=== PATIENT | male | born 1950 | race Caucasian/White ===

== ENCOUNTER 2017-10-07 11:04 | Inpatient (IN) | payer OTHER ==
[~2017-10-07] VITALS: Ht 180.3 cm; Wt 114.7 kg
[2017-10-07] MEDS ORDERED: ALBU90OI INH (11:20)
[2017-10-07] MEDS ORDERED: AMLO10 PO (11:20)
[2017-10-07] MEDS ORDERED: ATOR20 PO (11:21)
[2017-10-07] MEDS ORDERED: ASPI81CH PO (11:21)
[2017-10-07] MEDS ORDERED: VERA240ER PO (11:21)
[2017-10-07] MEDS ORDERED: FURO20 PO (11:22)
[2017-10-07] MEDS ORDERED: GLIP5 PO (11:22)
[2017-10-07] MEDS ORDERED: METF500 PO (11:23)
[2017-10-07] MEDS ORDERED: LISI20 PO (11:23)
[2017-10-07 12:15] LABS: Hematocrit 36.1 % (37.0-53.0); Hemoglobin 12.5 g/dL (13.5-17.5); Mean Corpuscular HGB 30.5 pg (26.0-34.0); Mean Corpuscular HGB Conc 34.6 g/dL (31.5-36.5); Mean Corpuscular Volume 88 fL (80-100); Mean Platelet Volume 10.6 fL (9.1-12.4); Platelet Count 252 K/mm3 (150-400); RDW Coefficient Variation 14.3 % (11.7-14.2); RDW Standard Deviation 46.5 fL (35.1-46.3); White Blood Cell Count 8.45 K/mm3 (4.00-11.30)
[2017-10-07 12:22] LABS: Albumin, Blood 3.1 g/dL (3.4-5.0); Albumin/Globulin Ratio 0.7 (0.8-1.8); Bilirubin, Total 0.3 mg/dL (0.1-1.0); Bun/Creatinine Ratio 19.1 (12.0-20.0); Calcium, Blood 7.2 mg/dL (8.5-10.1); Creatinine, Blood 5.72 mg/dL (0.60-1.20); Globulin, Blood 4.7 g/dL (2.2-4.0); Potassium, Blood 4.1 mmol/L (3.5-5.5); Total Protein, Blood 7.8 g/dL (6.4-8.2)
[2017-10-07 12:29] LABS: International Normalized Ratio 1.03; Prothrombin Time Results 10.7 Sec (9.7-11.5)
[2017-10-07 12:33] LABS: Bilirubin, Urine Neg (Neg); Blood, Urine 2+ (Neg); Glucose Qualitative, Urine Neg (Neg); Ketones, Urine Neg (Neg); Leukocyte Esterase, Urine Neg (Neg); Nitrite, Urine Neg (Neg); Protein, Urine 1+ (Neg); Source, Urine Clean Catch; Urobilinogen, Urine NORM (Normal)
[2017-10-07 12:50] LABS: Appearance, Urine Clear (Clear); Color, Urine Yellow (P-Yellow)
[2017-10-07 12:58] LABS: BASOPHILS PERCENT MAN 0 % (0-2); EOSINOPHILS PERCENT MAN 0 % (0-6); LYMPHOCYTES ABSOLUTE MAN 1.26 K/mm3 (0.84-5.20); LYMPHOCYTES PERCENT MAN 15 % (21-46); MONOCYTES PERCENT MAN 6 % (4-13); NEUTROPHILS ABSOLUTE MAN 6.67 K/mm3 (1.96-9.15); SEG NEUTROPHILS PERCENT MAN 79 % (41-73); TOTAL CELLS COUNTED 100
[2017-10-07 13:10] LABS: Bacteria Mod /hpf; Red Blood Cells, Urine 0-2 /hpf (0-2); Squamous Epithelial Cells Few /hpf (Few)
[2017-10-08 04:38] LABS: BASOPHILS ABSOLUTE AUTO 0.01 K/mm3 (0.00-0.23); BASOPHILS PERCENT AUTO 0 % (0-2); EOSINOPHILS ABSOLUTE AUTO 0.03 K/mm3 (0.00-0.68); EOSINOPHILS PERCENT AUTO 1 % (0-6); Hematocrit 32.4 % (37.0-53.0); IMMATURE GRAN ABSOLUTE AUTO 0.01 K/mm3 (0.00-0.10); IMMATURE GRAN PERCENT AUTO 0 % (0-1); LYMPHOCYTES ABSOLUTE AUTO 1.13 K/mm3 (0.84-5.20); LYMPHOCYTES PERCENT AUTO 18 % (21-46); MONOCYTES ABSOLUTE AUTO 0.42 K/mm3 (0.16-1.47); MONOCYTES PERCENT AUTO 7 % (4-13); Mean Corpuscular HGB 30.1 pg (26.0-34.0); Mean Corpuscular Volume 89 fL (80-100); Mean Platelet Volume 10.1 fL (9.1-12.4); NEUTROPHILS ABSOLUTE AUTO 4.78 K/mm3 (1.96-9.15); NEUTROPHILS PERCENT AUTO 75 % (41-73); Platelet Count 202 K/mm3 (150-400); RDW Coefficient Variation 14.5 % (11.7-14.2); RDW Standard Deviation 47.3 fL (35.1-46.3); Red Blood Cell Count 3.65 M/mm3 (4.30-5.90); White Blood Cell Count 6.38 K/mm3 (4.00-11.30)
[2017-10-08 04:55] LABS: Bun/Creatinine Ratio 27.8 (12.0-20.0); Calcium, Blood 6.9 mg/dL (8.5-10.1); Creatinine, Blood 3.02 mg/dL (0.60-1.20); Potassium, Blood 3.9 mmol/L (3.5-5.5)
[2017-10-09 05:16] LABS: BASOPHILS ABSOLUTE AUTO 0.01 K/mm3 (0.00-0.23); BASOPHILS PERCENT AUTO 0 % (0-2); EOSINOPHILS ABSOLUTE AUTO 0.04 K/mm3 (0.00-0.68); EOSINOPHILS PERCENT AUTO 1 % (0-6); Hematocrit 32.7 % (37.0-53.0); Hemoglobin 10.7 g/dL (13.5-17.5); IMMATURE GRAN ABSOLUTE AUTO 0.01 K/mm3 (0.00-0.10); IMMATURE GRAN PERCENT AUTO 0 % (0-1); LYMPHOCYTES ABSOLUTE AUTO 1.06 K/mm3 (0.84-5.20); LYMPHOCYTES PERCENT AUTO 18 % (21-46); MONOCYTES ABSOLUTE AUTO 0.64 K/mm3 (0.16-1.47); MONOCYTES PERCENT AUTO 11 % (4-13); Mean Corpuscular HGB 30.1 pg (26.0-34.0); Mean Corpuscular HGB Conc 32.7 g/dL (31.5-36.5); Mean Platelet Volume 10.8 fL (9.1-12.4); NEUTROPHILS ABSOLUTE AUTO 4.29 K/mm3 (1.96-9.15); NEUTROPHILS PERCENT AUTO 71 % (41-73); Platelet Count 228 K/mm3 (150-400); RDW Coefficient Variation 14.7 % (11.7-14.2); RDW Standard Deviation 50.4 fL (35.1-46.3); Red Blood Cell Count 3.55 M/mm3 (4.30-5.90); White Blood Cell Count 6.05 K/mm3 (4.00-11.30)
[2017-10-09 05:23] LABS: Mean Corpuscular Volume 92 fL (80-100)
[2017-10-09 05:48] LABS: Bun/Creatinine Ratio 29.7 (12.0-20.0); Calcium, Blood 7.5 mg/dL (8.5-10.1); Creatinine, Blood 1.65 mg/dL (0.60-1.20); Potassium, Blood 4.3 mmol/L (3.5-5.5)
== END 2017-10-09 10:07 | disposition home or self-care (01) | DRG 683 ==
LOC: ER 11:04 → MEDS 12:08 → ENPENDDIS 10-09 08:50 → MEDS 10-09 10:07
PROVIDERS: Internal Medicine
DX: N17.9 Acute kidney failure, unspecified (principal); I13.0 Hypertensive heart and chronic kidney disease with heart failure and stage 1 through stage 4 chronic kidney disease, or unspecified chronic kidney disease; E11.22 Type 2 diabetes mellitus with diabetic chronic kidney disease; E11.40 Type 2 diabetes mellitus with diabetic neuropathy, unspecified; N18.2 Chronic kidney disease, stage 2 (mild); D63.1 Anemia in chronic kidney disease; I48.0 Paroxysmal atrial fibrillation; J44.9 Chronic obstructive pulmonary disease, unspecified; I50.9 Heart failure, unspecified; E78.5 Hyperlipidemia, unspecified; F17.210 Nicotine dependence, cigarettes, uncomplicated; E66.9 Obesity, unspecified; Z68.34 Body mass index [BMI] 34.0-34.9, adult; Z79.84 Long term (current) use of oral hypoglycemic drugs; Z79.82 Long term (current) use of aspirin; Z79.899 Other long term (current) drug therapy
CPT/HCPCS: 36415; 71010; 76770; 80048; 80053; 81001; 82947; 83605; 84100; 85007; 85025; 85027; 85610; 87040; 87086; 93005; 93010; 94640; 94760; 96361; 96374; 99285; C9113; J7030; J7120

== ENCOUNTER 2020-02-28 22:16 | Inpatient (IN) | payer OTHER, MEDICARE ==
[~2020-02-28] VITALS: Ht 180.3 cm; Wt 83.6 kg
[~2020-02-28 22:16] MED LIST: ALBU90OI INH; AMLO10 PO; ASPI81CH PO; ATOR20 PO; FURO20 PO; GLIP5 PO; LISI20 PO; METF500 PO; VERA240ER PO
[2020-02-28 22:39] LABS: BASOPHILS ABSOLUTE AUTO 0.04 K/mm3 (0.00-0.23); BASOPHILS PERCENT AUTO 0 % (0-2); EOSINOPHILS ABSOLUTE AUTO 0.03 K/mm3 (0.00-0.68); EOSINOPHILS PERCENT AUTO 0 % (0-6); Hematocrit 26.3 % (37.0-53.0); Hemoglobin 8.1 g/dL (13.5-17.5); IMMATURE GRAN ABSOLUTE AUTO 0.03 K/mm3 (0.00-0.10); IMMATURE GRAN PERCENT AUTO 0 % (0-1); LYMPHOCYTES ABSOLUTE AUTO 0.57 K/mm3 (0.84-5.20); LYMPHOCYTES PERCENT AUTO 5 % (21-46); MONOCYTES ABSOLUTE AUTO 0.72 K/mm3 (0.16-1.47); MONOCYTES PERCENT AUTO 7 % (4-13); Mean Corpuscular HGB 28.4 pg (26.0-34.0); Mean Corpuscular HGB Conc 30.8 g/dL (31.5-36.5); Mean Corpuscular Volume 92 fL (80-100); Mean Platelet Volume 9.4 fL (9.1-12.4); NEUTROPHILS ABSOLUTE AUTO 9.72 K/mm3 (1.96-9.15); NEUTROPHILS PERCENT AUTO 87 % (41-73); Platelet Count 466 K/mm3 (150-400); RDW Coefficient Variation 19.4 % (11.7-14.2); RDW Standard Deviation 65.1 fL (35.1-46.3); Red Blood Cell Count 2.85 M/mm3 (4.30-5.90); White Blood Cell Count 11.11 K/mm3 (4.00-11.30)
[2020-02-28 23:00] LABS: Albumin, Blood 2.4 g/dL (3.4-5.0); Albumin/Globulin Ratio 0.4 (0.8-1.8); Bilirubin, Total 0.4 mg/dL (0.1-1.0); Bun/Creatinine Ratio 11.5 (12.0-20.0); Calcium, Blood 9.2 mg/dL (8.5-10.1); Creatinine, Blood 10.6 mg/dL (0.60-1.20); Globulin, Blood 5.8 g/dL (2.2-4.0); Potassium, Blood 6.5 mmol/L (3.5-5.5); Total Protein, Blood 8.2 g/dL (6.4-8.2)
[2020-02-28] MEDS ORDERED: CLOP75 PO (23:40)
[2020-02-28] MEDS ORDERED: METF500 PO (23:40)
[2020-02-28] MEDS ORDERED: CENTRUM SILVER1 EAC2 PO (23:41)
[2020-02-28] MEDS ORDERED: Lopressor 25 mg25 MG PO (23:42)
[2020-02-28] MEDS ORDERED: CALCIUM CIT 311 EACH PO (23:43)
[2020-02-28] MEDS ORDERED: LISI20 PO (23:44)
[2020-02-29 00:26] LABS: Base Excess Venous -13.1 mmol/L; Bicarbonate Venous 14.9 mmol/L (24.0-30.0); PCO2 Venous 30.5 mmHg (38-42); PO2 Venous 69.7 mmHg (38-42)
[2020-02-29 00:27] LABS: pH Blood Venous 7.27 (7.34-7.37)
--- NOTE | 2020-02-29 02:15 | NUR ---
PT TO ICU 13 VIA CHEMO WITH ED RN, PT AMBULATES WITH ASSITANCE TO HOSPITAL BED. PT ALERT AND ORIENTED TO SELF, EVENT, LOCATION, AND FOLLOWING DIRECTIONS. O2 SATURATIONS>95% ON RA, MONITOR SHOWS SINUS RHYTHM, HR 70'S, BP STABLE WITH SBP 150'S. MODERATE ABDOMINAL DISTENSION PRESENT, BTx4, PT DENIES PAIN/TENDERNESS AT THIS TIME, REPORTS MEDICATION PROVIDED IN ED "DID THE TRICK" FOR HIS PAIN. QUEEN PRESENT DRAINING LIGHT YELLOW URINE, SAMPLE SENT TO LAB. LR INFUSING @ 100ml/hr PLACED ON SB TO CONFIRM ORDERS WITH ADMITTING PROVIDER.
[2020-02-29 02:21] LABS: Source, Urine Catheter
[2020-02-29 02:37] LABS: Bun/Creatinine Ratio 11.4 (12.0-20.0); Calcium, Blood 8.9 mg/dL (8.5-10.1); Creatinine, Blood 10.7 mg/dL (0.60-1.20); Potassium, Blood 6.5 mmol/L (3.5-5.5)
[2020-02-29 02:39] LABS: Bilirubin, Urine Neg (Neg); Blood, Urine 4+ (Neg); Glucose Qualitative, Urine Neg (Neg); Ketones, Urine 1+ (Neg); Leukocyte Esterase, Urine Neg (Neg); Nitrite, Urine Neg (Neg); Protein, Urine 3+ (Neg); Specific Gravity, Urine 1.015 (1.003-1.022); Urobilinogen, Urine NORM (Normal)
[2020-02-29 02:41] LABS: Appearance, Urine Clear (Clear); Color, Urine Yellow (P-Yellow)
[2020-02-29 02:42] LABS: Hematocrit 25.6 % (37.0-53.0)
--- NOTE | 2020-02-29 02:45 | NUR ---
CALL PLACED TO DR COHEN REGARDING POTASSIUM AND CREATININE LAB RESULTS, 10 UNITS REGULAR INSULIN IV, 1 AMP D50, Q1H CBG, AND DC LR ORDERED.
[2020-02-29 02:47] LABS: Amorphous Mod (0-Heavy); Bacteria Rare /hpf; Squamous Epithelial Cells Few /hpf (Few); White Blood Cells, Urine Rare /hpf (0-5)
[2020-02-29 02:48] LABS: Transitional Epithelial Cells Few /hpf (0-Rare)
--- NOTE | 2020-02-29 07:00 | NUR ---
SHIFT SUMMARY NO ACUTE CHANGES THIS SHIFT, PT REMAINS ALERT AND ORIENTED, BREIF PERIODS OF REST IN BETWEEN NURSING CARE, VSS. CBG PRIOR TO ADMINISTRATION OF 10 UNITS IV INSULIN 100, SUBSEQUENT CBGS OF 71 AND 60, CALL PLACED TO DR COHEN, 1/2 AMP D50 AND HYPOGLYCEMIC PROTOCOL ORDERED. D50 ADMINISTERED, FOLLOW UP CBG OF 118. DR EVANS IN TO SEE PT THIS AM, NO NEW ORDERS AT THIS TIME. REPORT GIVEN TO VICKI ZARAGOZA.
[2020-02-29 07:05] LABS: BASOPHILS ABSOLUTE AUTO 0.04 K/mm3 (0.00-0.23); BASOPHILS PERCENT AUTO 1 % (0-2); EOSINOPHILS ABSOLUTE AUTO 0.11 K/mm3 (0.00-0.68); EOSINOPHILS PERCENT AUTO 1 % (0-6); Hematocrit 21.8 % (37.0-53.0); Hemoglobin 6.8 g/dL (13.5-17.5); IMMATURE GRAN ABSOLUTE AUTO 0.02 K/mm3 (0.00-0.10); IMMATURE GRAN PERCENT AUTO 0 % (0-1); LYMPHOCYTES ABSOLUTE AUTO 0.73 K/mm3 (0.84-5.20); LYMPHOCYTES PERCENT AUTO 9 % (21-46); MONOCYTES PERCENT AUTO 7 % (4-13); Mean Corpuscular HGB 28.8 pg (26.0-34.0); Mean Corpuscular HGB Conc 31.2 g/dL (31.5-36.5); Mean Corpuscular Volume 92 fL (80-100); Mean Platelet Volume 9.6 fL (9.1-12.4); NEUTROPHILS ABSOLUTE AUTO 6.66 K/mm3 (1.96-9.15); NEUTROPHILS PERCENT AUTO 82 % (41-73); Platelet Count 343 K/mm3 (150-400); RDW Coefficient Variation 19.7 % (11.7-14.2); RDW Standard Deviation 66.5 fL (35.1-46.3); Red Blood Cell Count 2.36 M/mm3 (4.30-5.90); White Blood Cell Count 8.16 K/mm3 (4.00-11.30)
[2020-02-29 07:28] LABS: Albumin, Blood 2.1 g/dL (3.4-5.0); Albumin/Globulin Ratio 0.4 (0.8-1.8); Bilirubin, Total 0.3 mg/dL (0.1-1.0); Bun/Creatinine Ratio 11.5 (12.0-20.0); Calcium, Blood 8.8 mg/dL (8.5-10.1); Creatinine, Blood 10.5 mg/dL (0.60-1.20); Globulin, Blood 4.8 g/dL (2.2-4.0); Potassium, Blood 6.1 mmol/L (3.5-5.5); Total Protein, Blood 6.9 g/dL (6.4-8.2)
--- NOTE | 2020-02-29 07:30 | NUR ---
ASSUMED CARE BEDSIDE REPORT RECIEVED. PT IS AWAKE, ALERT, AND ORIENTED. PT ANSWERS QUESTIONS APPROPRIATELY. PT DENIES PAIN AT REST. PT COMPLAINS OF ABD DISCOMFORT WITH PALPATION. VITAL SIGNS STABLE, PT ON ROOM AIR. SODIUM BICARB IN D5 INFUSING AT 100 ML/HR. QUEEN IN PLACE WITH YELLOW URINE OUTPUT NOTED. WILL CONTINUE TO MONITOR.
--- NOTE | 2020-02-29 10:08 | NUR ---
DR MARY JO CAMARGO HERE TO SEE PT. PLAN TO TAKE PT TO SURGERY TODAY. PT IS AGREEABLE. PT CONTINUES TO COMPLAIN OF ABD PAIN WITH PALPATION. VITAL SIGNS REMAIN STABLE.
[2020-02-29 10:15] LABS: Hematocrit 22.3 % (37.0-53.0)
[2020-02-29 10:42] LABS: Bun/Creatinine Ratio 11.6 (12.0-20.0); Calcium, Blood 8.9 mg/dL (8.5-10.1); Creatinine, Blood 10.8 mg/dL (0.60-1.20); Potassium, Blood 5.8 mmol/L (3.5-5.5)
--- NOTE | 2020-02-29 12:10 | NUR ---
PT TAKEN TO SURGERY.
--- NOTE | 2020-02-29 12:45 | NUR ---
02/29/20 1245 Aristides Juarez PATIENT ON SCHEDULED ANTIBIOTICS. ARRIVED TO OR WITH QUEEN CATH DRAINING CLEAR YELLOW URINE.
--- NOTE | 2020-02-29 14:40 | NUR ---
UPDATE PT BACK FROM PACU S/P ABD SURGERY. PT IS AWAKE, ALERT, AND ORIENTED. PT DROWSEY. PT DENIES PAIN OR DISCOMFORT AT THIS TIME. VITAL SIGNS STABLE. MIDLINE ABD INCISION WITH GIAN WOUND VAC IN PLACE. QUEEN EMPTIED, 24 HOUR URINE COLLECTION STARTED AT 1430. WILL CONTINUE TO MONITOR.
[2020-02-29 15:16] LABS: Hemoglobin 7.4 g/dL (13.5-17.5)
--- NOTE | 2020-02-29 17:50 | NUR ---
SHIFT SUMMARY PT RESTING QUIETLY AT THIS TIME. PT HAS COMPLAINED OF ABD PAIN SINCE RETURN FROM SURGERY THIS AFTERNOON. PT MED WITH FENTANYL WITH LITTLE EFFECT. UPDATED DR ROSA, NEW ORDERS FOR DILAUDID RECIEVED. PT MED WITH DILAUDID WITH GOOD EFFECT. VITAL SIGNS HAVE REMAINED STABLE. PT ON 2L O2 NC. SODIUM BICARB IN D5 INFUSING AT 100 ML/HR. QUEEN REMAINS IN PLACE WITH 24 HOUR URINE COLLECTION IN PROGRESS. QUEEN DRAINAGE BAG ON ICE. PT ABD REMAINS DISTENDED. MIDLINE ABD GIAN WOUND VAC REMAINS C/D/I. WILL CONTINUE TO MONITOR AND REPORT OFF TO ONCOMING RN.
--- NOTE | 2020-02-29 20:46 | NUR ---
ASSUMPTION OF CARE PT SLEEPING, AROUSES TO VERBAL STIMULI, ORIENTED TO SELF, EVENT, LOCATION, YEAR AND FOLLOWING DIRECTIONS. PT DENIED PAIN @ 1900, REPORTS ADEQUATE PAIN RELEIF WITH PREVIOUSLY ADMINISTERED MEDICATION, EDUCATED PT ON IMPORTANCE OF PAIN MANAGEMENT AND NOTIFYING RN IF PAIN BEGINS TO RETURN. O2 SATURATIONS>95% ON 2L PER NC. MONITOR SHOWS SINUS RHYTHM WITH HR 80'S, HYPERTENSION NOTED WITH SBP 150'S. GIAN WOUND VAC IN PLACE TO UPPER MIDLINE ABD, DRESSING C/D/I. QUEEN IN PLACE DRAINING LIGHT YELLOW URINE, 24 HOUR URINE COLLECTION IN PROGRESS, QUEEN BAG ON ICE. CALL LIGHT WITHIN REACH.
--- NOTE | 2020-03-01 00:45 | NUR ---
TO ROOM AFTER PT PRESSES CALL LIGHT. PT REPORTS SOME INCREASED ABD PAIN AFTER REPOSITIONING. 0.5MG DILAUDID ADMINISTERED WTIH GOOD EFFECT. ORAL SWABS PROVIDED FOR DRY MOUTH. PT DENIES ANY OTHER NEEDS AT THIS TIME.
--- NOTE | 2020-03-01 02:43 | NUR ---
REPORT GIVEN TO MATI ZARAGOZA
[2020-03-01 03:19] LABS: Hematocrit 24.1 % (37.0-53.0); Hemoglobin 7.6 g/dL (13.5-17.5)
--- NOTE | 2020-03-01 03:43 | NUR ---
ASSUMED CARE OF PT. PT A/O X3-4; FORGETFUL. BED ALARM ON. GIAN TO ABD IS CDI, GREEN LIGHT BLINKING. PT MEDICATED FOR PAIN. PT ORIENTED TO ROOM, BELONGINGS IN ROOM. CALL LIGHT IN PLACE.
[2020-03-01 03:46] LABS: Alanine Aminotransfer (ALT/SGP 27 U/L (12-78); Albumin, Blood 2.1 g/dL (3.4-5.0); Albumin/Globulin Ratio 0.4 (0.8-1.8); Alk Phos 91 U/L (50-136); Anion Gap 10 mmol/L (6-16); Aspartate Aminotrans (AST/SGOT 21 U/L (12-37); Bilirubin, Direct 0.1 mg/dL (0.0-0.3); Bilirubin, Indirect 0.2 mg/dL (0.1-0.7); Bilirubin, Total 0.3 mg/dL (0.1-1.0); Blood Urea Nitrogen 115 mg/dL (8-24); CO2, Blood 23 mmol/L (21-32); CPK Creatine Kinase 42 U/L (39-308); Calcium, Blood 7.9 mg/dL (8.5-10.1); Chloride, Blood 106 mmol/L (98-108); Globulin, Blood 5.3 g/dL (2.2-4.0); Glucose, Blood 168 mg/dL (70-99); Magnesium, Blood 1.8 mg/dL (1.6-2.4); Phosphorus, Blood 5.2 mg/dL (2.5-4.9); Potassium, Blood 5.8 mmol/L (3.5-5.5); Sodium, Blood 139 mmol/L (136-145); Total Protein, Blood 7.4 g/dL (6.4-8.2)
[2020-03-01 04:14] LABS: Bun/Creatinine Ratio 11.7 (12.0-20.0); Creatinine, Blood 9.81 mg/dL (0.60-1.20); Glomerular Filtration Rate 6 (60-)
--- NOTE | 2020-03-01 05:42 | NUR ---
SHIFT SUMMARY PT TRANSFERED TO SURGICAL FLOOR AROUND 0300. PT WAS MEDICATED FOR PAIN AND HAS BEEN SLEEPING. PT IS A/O X3-4; FORGETFUL AT TIMES. CALL LIGHT IN REACH, BED ALARM ON. QUEEN PATENET, STAT LOCK IN PLACE. QUEEN BAG IS ON ICE 24HR URINE IS BEING COLLECTED. CALL PLACED TO DR. EVANS THIS AM REGARDING MORNING LABS; ORDER FOR NS @ 75 GIVEN.
[2020-03-01 17:01] LABS: Protein, Urine Quantitative 111.1 mg/dL (0.0-11.9)
--- NOTE | 2020-03-01 17:25 | NUR ---
SUMMARY SITTING UP IN CHAIR AT THIS TIME. PT REPORTS PAIN IS WELL CONTROLLED, DENIES NAUSEA. PT STATES NO FLATUS OR BELCHING AT THIS TIME. GIAN IN PLACE TO ABD WITHOUT DRAINAGE
[2020-03-02 04:02] LABS: Hemoglobin 7.3 g/dL (13.5-17.5)
[2020-03-02 04:24] LABS: Magnesium, Blood 1.9 mg/dL (1.6-2.4)
[2020-03-02 04:30] LABS: Albumin, Blood 1.9 g/dL (3.4-5.0); Anion Gap 9 mmol/L (6-16); Blood Urea Nitrogen 110 mg/dL (8-24); Bun/Creatinine Ratio 10.9 (12.0-20.0); CO2, Blood 23 mmol/L (21-32); Calcium, Blood 7.5 mg/dL (8.5-10.1); Chloride, Blood 112 mmol/L (98-108); Glomerular Filtration Rate 5 (60-); Glucose, Blood 85 mg/dL (70-99); Phosphorus, Blood 4.7 mg/dL (2.5-4.9); Potassium, Blood 5.8 mmol/L (3.5-5.5); Sodium, Blood 144 mmol/L (136-145)
--- NOTE | 2020-03-02 05:04 | NUR ---
SHIFT SUMMARY PT IS A/O X4 ALTHOUGH HE SEEMS SLIGHTLY FORGETFUL AT TIMES. PT NEEDS 1-2 ASSIST TO AMBULATE/TRANSFER. PT MOVES SELF WELL IN BED. PAIN MANAGED WITH IV DILAUDED PER ORDERS. PT TOLERATES WELL. PT HAS BEEN SLEEPING MOST OF THE NIGHT. HAS BEEN NPO PER ORDERS. QUEEN PATENT; PT STILL HAS LOW URINE OUTPUT. NO ACUTE CHANGES.
--- NOTE | 2020-03-02 09:25 | NUR ---
dr khushboo ferro, pt sitting up in bed, a/0 x 4, pleasant/cooperative, call light within reach. pt denies flatus, but reports he felt like he "almost passed gas". Pt NPO, will awake surgeon rounding and orders
--- NOTE | 2020-03-02 14:14 | NUR ---
pastoral care in with pt
--- NOTE | 2020-03-02 15:20 | NUR ---
Patient is sitting up in bed and alert. Patient is very talkative and upbeat. Patient's tone changes when he talks about some of the relationships that have caused him pain and left him self-protective. Patient explains about his complex spiritual belief system which is a mix of Jehovah Witness, Worship and belief in aliens. Patient gets so excited talking about his thoughts on these matters that he has to stop talking and take some deep cleansing breaths. Patient is pleasant and comes across as genuine. Patient also talks about , dying and the afterlife. I listen empathically, normalize patient's experience and provide companionship and a calming presence. Patient responds well and shows signs of improved hope.
--- NOTE | 2020-03-02 17:38 | NUR ---
SHIFT SUMMARY: PT REMAINED A/O X 4, PLEASANT/COOPERATIVE, NO ACUTE CHANGES. PT REMAINED NPO THIS SHIFT. PT WILL UNDERGO UPPER GI SERIES TOMORROW, NPO AFTER MIDNIGHT. PT OK TO HAVE MEDS WITH WATER. PT TOLERATED PO MEDICATIONS, NO N/V. NO FLATUS THIS SHIFT, BUT PT STATES HE "FELT LIKE HE HAD TO PASS GAS". ENCOURAGED OOB WITH STANDBY ASSIST, GAIT BELT/FWW, ABLE TO WALK TO DOORWAY OF ROOM, TOLERATED WELL. PT WITH MINIMAL URINARY OUTPUT, QUEEN IN PLACE, ABX TREATMENT FOR UTI. PT TALKED WITH FRIENDS/FAMILY MEMBER ON TELEPHONE THIS SHIFT MULTIPLE. PT UP IN CHAIR THIS AM FOR APPROX 2 HRS. PT VISITED WITH PASTORAL CARE THIS SHIFT. DR CAMARGO AND HOSPITALIST BOTH ROUNDED.
--- NOTE | 2020-03-03 04:07 | NUR ---
PROVIDER NOTIFIED DR. COHEN NOTIFED OF PT'S CBG OF 65. PROVIDER ALSO INFORMED PT APPEARS ASYMPTOMATIC AND THAT HE DENIES ANY S/SX OF HYPOGLYCEMIA. WILL MEDICATE PER EMAR AND REASSESS.
[2020-03-03 04:32] LABS: Hematocrit 25.1 % (37.0-53.0); Hemoglobin 7.4 g/dL (13.5-17.5)
[2020-03-03 04:53] LABS: Magnesium, Blood 1.8 mg/dL (1.6-2.4)
[2020-03-03 04:59] LABS: Albumin, Blood 1.9 g/dL (3.4-5.0); Anion Gap 14 mmol/L (6-16); Blood Urea Nitrogen 116 mg/dL (8-24); Bun/Creatinine Ratio 10.5 (12.0-20.0); CO2, Blood 19 mmol/L (21-32); Chloride, Blood 114 mmol/L (98-108); Glomerular Filtration Rate 5 (60-); Glucose, Blood 69 mg/dL (70-99); Phosphorus, Blood 4.8 mg/dL (2.5-4.9); Potassium, Blood 5.5 mmol/L (3.5-5.5); Sodium, Blood 147 mmol/L (136-145)
--- NOTE | 2020-03-03 06:02 | NUR ---
DR EVANS ROUNDING DR EVANS IN TO SEE PT AT THIS TIME. NOTIFIED OF CREATININE VALUE OF 11.1. NO NEW ORDERS AT THIS TIME. PLAN FOR SURGERY AT THIS TIME.
--- NOTE | 2020-03-03 06:22 | NUR ---
SHIFT SUMMARY POD 3 NORMAN PATCH CLOSURE, GIAN TO UPPER MIDLINE C/D/I. PT REPORTS PASSING FLATUS. NPO FOR SURGICAL PROCEDURE TODAY. QUEEN CATH IN PLACE DRAINING LIGHT YELLOW URINE. PT A/OX4, VSS. CBG OF 65 DURING NIGHT; D50 ADMINISTERED PER ORDERS. CBG IS CURRENTLY 118. PAIN MANAGED WITH 1 TAB PO MEDICATION. USING IS/FLUTTER VALVE FREQUENTLY T/O NIGHT. PT IS CURRENTLY RESTING IN BED WITH CALL LIGHT IN REACH. WILL CONT TO MONITOR AND GIVE REPORT TO ONCOMING RN.
--- NOTE | 2020-03-03 09:25 | NUR ---
PT IS HAVING ORAL CONTRAST THIS MORNING. [facility] NOTIFIED, THEY REPORTED HIS PERMA-CATH WOULD BE PLACED LATER TODAY AND THE TEST ORDERED BY DR. CAMARGO COULD BE DONE AND PT NPO AFTER THAT. DR. CAMARGO NOTIFIED.
--- NOTE | 2020-03-03 09:57 | NUR ---
PERMA-CATH DR. JONES CONSULTED ON PT FOR PERMA-CATH PLACEMENT LATER TODAY. DR. JONES WAS MADE AWARE PT HAD HIS ASA AND PLAVIX YESTERDAY. WILL HOLD ASA AND PLAVIX TODAY PER DR. JONES. WILL CONTINUE TO MONITOR.
--- NOTE | 2020-03-03 15:37 | NUR ---
DIARRHEA DR. CAMARGO NOTIFIED THAT PT IS HAVING LARGE AMOUNTS OF LIQUID STOOL. NO STOOL SAMPLE TO BE SENT AT THIS TIME. WILL CONTINUE TO MONITOR.
--- NOTE | 2020-03-03 16:38 | NUR ---
1600 hours, pt out of room for procedure.
--- NOTE | 2020-03-03 18:03 | NUR ---
PT ARRIVED TO THE ROOM AT PROXIMATELY 1800. PT IS ALERT AND ORIENTED. HE DOES HAVE INCREASED WORK OF BREATHING FROM HIS PRE-OP ASSESSMENT. RHONCI NOTED IN RIGHT UPPER LOBE. PT REPORTS FEELING MILDLY SOB. RT NOTIFIED AND ARRIVED TO GIVE BREATHING TX. WILL CONTINUE TO MONITOR.
--- NOTE | 2020-03-03 19:22 | NUR ---
shift summary: Patienet had permicath placed in upper right chest this evening. HE HAD SLIGHT BLEEDING AROUND STITCHES ON RIGHT COLLAR BONE. HE HAD LABORED BREATHING ON RETURN FROM THE PROCEDURE AND RECIEVED BREATHING TREATMENT FROM RESPIRATORY THERAPY. OXYGEN SATURATION IMPROVED FROM 88% TO 92-94% AFTER TREATMENT. HE STILL HAS SOME LIQUID STOOL. HE IS A&O X 4 AND IS ON CLEAR LIQUIDS, ADVANCE DIET TOLERATED. HE PREFERS TO KEEP PHONE CLOSE, SO THAT HE CAN ANSWER WHEN FRIENDS CALL.
--- NOTE | 2020-03-03 19:39 | NUR ---
SHIFT SUMMARY PT HAD PERMA-CATH PLACED TODAY. HE ALSO HAD IMAGING ORDERED BY DR. CAMARGO. PT IS ABLE TO ADVANCE DIET TOLERATED. PLAN FOR DIALYSIS AND UNIT OF PRBC TOMORROW. VSS. REPORT GIVEN TO ILSA ZARAGOZA.
[2020-03-04 05:07] LABS: Hemoglobin 4.2 g/dL (13.5-17.5)
[2020-03-04 05:25] LABS: Percent Saturation 28.1 % (20.0-50.0)
[2020-03-04 05:26] LABS: Magnesium, Blood 1.8 mg/dL (1.6-2.4)
[2020-03-04 05:30] LABS: Albumin, Blood 1.9 g/dL (3.4-5.0); Anion Gap 14 mmol/L (6-16); Blood Urea Nitrogen 110 mg/dL (8-24); Bun/Creatinine Ratio 9.7 (12.0-20.0); CO2, Blood 16 mmol/L (21-32); Calcium, Blood 7.9 mg/dL (8.5-10.1); Chloride, Blood 115 mmol/L (98-108); Glomerular Filtration Rate 5 (60-); Glucose, Blood 96 mg/dL (70-99); Phosphorus, Blood 4.7 mg/dL (2.5-4.9); Potassium, Blood 4.6 mmol/L (3.5-5.5); Sodium, Blood 145 mmol/L (136-145)
[2020-03-04 06:41] LABS: Hematocrit 22.1 % (37.0-53.0); Hemoglobin 6.8 g/dL (13.5-17.5)
[2020-03-04 08:09] LABS: ANTIGLOMERULAR BM AB 3 units (0-20)
--- NOTE | 2020-03-04 08:43 | NUR ---
[address] TO RIGHT UPPER CHEST. DRESSING INTACT WITH SCANT AMOUNT DRIED SEROSANGUINOUS DRAINAGE
[2020-03-04 13:07] LABS: A/G RATIO 0.7 (0.7-1.7); ALBUMIN 2.5 g/dL (2.9-4.4); ALPHA-1-GLOBULIN 0.5 g/dL (0.0-0.4); BETA GLOBULIN 0.7 g/dL (0.7-1.3); GAMMA GLOBULIN 1.9 g/dL (0.4-1.8); GLOBULIN, TOTAL 4.1 g/dL (2.2-3.9); IMMUNOGLOBULIN A, QN, SERUM 422 mg/dL (61-437); IMMUNOGLOBULIN G, QN, SERUM 2057 mg/dL (603-1613); IMMUNOGLOBULIN M, QN, SERUM 31 mg/dL (15-143); M-SPIKE Not Observed g/dL (Not Observed); PROTEIN, TOTAL, SERUM 6.6 g/dL (6.0-8.5)
--- NOTE | 2020-03-04 14:43 | NUR ---
1430 DIALYSIS BEING INITIATED AT BEDSIDE
--- NOTE | 2020-03-04 16:26 | NUR ---
DIALYSIS BEING RUN AT PATIENTS BEDSIDE
--- NOTE | 2020-03-04 16:28 | NUR ---
ASSUMED PATIENT CARE. PATIENT RESTING COMFORTABLY IN BED, DIALYSIS IN PROGRESS WITH DIALYSIS NURSE AT BEDSIDE. PATIENT ABLE TO CONVERSE WITH NURSING STAFF. NO SIGNS OF ACUTE DISTRESS, WCTM.
--- NOTE | 2020-03-04 19:20 | NUR ---
RELINQUISHED PATIENT CARE.
[2020-03-05 04:22] LABS: Hematocrit 23.5 % (37.0-53.0); Hemoglobin 7.5 g/dL (13.5-17.5)
[2020-03-05 04:46] LABS: Albumin, Blood 1.7 g/dL (3.4-5.0); Anion Gap 12 mmol/L (6-16); Blood Urea Nitrogen 65 mg/dL (8-24); Bun/Creatinine Ratio 8.5 (12.0-20.0); CO2, Blood 21 mmol/L (21-32); Calcium, Blood 7.3 mg/dL (8.5-10.1); Chloride, Blood 107 mmol/L (98-108); Creatinine, Blood 7.63 mg/dL (0.60-1.20); Glomerular Filtration Rate 7 (60-); Glucose, Blood 110 mg/dL (70-99); Magnesium, Blood 1.7 mg/dL (1.6-2.4); Potassium, Blood 3.3 mmol/L (3.5-5.5); Sodium, Blood 140 mmol/L (136-145)
--- NOTE | 2020-03-05 04:48 | NUR ---
PATIENT WAKES EASILY TO VERBAL STIMULATION. GIAN DRESSING TO MIDLINE, C/D/I, FULLY COMPRESSED. QUEEN CATH REMOVED AT APPROXIMATELY 0100. PATIENT HAS NOT YET VOIDED, SINCE IT'S REMOVAL. CURRENTLY SLEEPING. NO ACUTE CHANGES THIS CHIFT. USES CALL LIGHT APROPRIATELY.
--- NOTE | 2020-03-05 07:05 | NUR ---
recvd report from previous shift mina lew, pt sleeping in bed, bed in lowest position, call light within reach, bed rails up x 2
[2020-03-05 08:09] LABS: HBSAG SCREEN Negative (Negative); HEP A AB, IGM Negative (Negative); HEP B CORE AB, IGM Negative (Negative); HEP C VIRUS AB 4.8 (0.0-0.9)
--- NOTE | 2020-03-05 08:46 | NUR ---
APPAREL RENTAL CLERK IN ROOM FOR SCHEDULED DIALYSIS WITH 2 UNITS PRBC
--- NOTE | 2020-03-05 11:45 | NUR ---
DR CAMARGO ROUNDING ON PT
[2020-03-05 14:11] LABS: ANA DIRECT Negative (Negative); ANTIMYELOPEROXIDASE (MPO) ABS >100.0 U/mL (0.0-9.0); ANTIPROTEINASE 3 (PR-3) ABS <3.5 U/mL (0.0-3.5); ATYPICAL PANCA <1:20 titer (Neg:<1:20); CYTOPLASMIC (C-ANCA) <1:20 titer (Neg:<1:20)
--- NOTE | 2020-03-05 16:37 | NUR ---
SHIFT SUMMARY: A/O X 4, PLEASANT/COOPERATIVE, NO N/V. PT TOLERATING PO INTAKE, DENIES NEED FOR PAIN MEDICATION ON ASSESSMENTS T/O SHIFT. PT/OT THIS SHIFT TOLERATED WELL, DIALYZED THIS SHIFT TOLERATED WELL AND TRANSFUSED 2 UNIT PRBC DURING DIALYSIS. PT WALKED IN HALLWAY WITH FWW/GAIT BELT AND STANBDY ASSIST. LUNGS: COURSE WITH EXPIRATORY WHEEZE. GIAN DRESSING C/D/I. NO URINARY OUTPUT, BLADDER SCANNED WITH 305 ML IN, STRAIGHT CATH WITH 325 ML OUT.
[2020-03-06 04:21] LABS: Hematocrit 30.6 % (37.0-53.0)
[2020-03-06 04:40] LABS: Albumin, Blood 1.7 g/dL (3.4-5.0); Anion Gap 11 mmol/L (6-16); Blood Urea Nitrogen 51 mg/dL (8-24); Bun/Creatinine Ratio 8.3 (12.0-20.0); CO2, Blood 24 mmol/L (21-32); Calcium, Blood 7.7 mg/dL (8.5-10.1); Chloride, Blood 106 mmol/L (98-108); Creatinine, Blood 6.16 mg/dL (0.60-1.20); Glomerular Filtration Rate 10 (60-); Glucose, Blood 97 mg/dL (70-99); Magnesium, Blood 1.6 mg/dL (1.6-2.4); Phosphorus, Blood 2.1 mg/dL (2.5-4.9); Potassium, Blood 3.3 mmol/L (3.5-5.5); Sodium, Blood 141 mmol/L (136-145)
--- NOTE | 2020-03-06 05:39 | NUR ---
Patient progressed through the shift and is up to BR with minimal assist and is able to come back independently. He has not been able to void through out the shift. this am he is feeling like he is having mild pressure like he needs to void. Bladder scans at 0045 and 0500 revealed 167cc and 293cc respectively. He would like to try to void on his own. He is not complaining of any pain. He is having flatus that he believes may be productive. abdomen is nontender with active BTs. No acute changes this shift, uses the call light appropriately. Will continue to monitor.
--- NOTE | 2020-03-06 08:56 | NUR ---
straight cath for 500 ml clear yellow urine
--- NOTE | 2020-03-06 09:10 | NUR ---
TO DIALYSIS UNIT PER WHEELCHAIR
--- NOTE | 2020-03-06 11:49 | NUR ---
return to room from dialysis. pt sitting up in chair for lunch, denies pain
--- NOTE | 2020-03-06 17:56 | NUR ---
summary PT HAS DENIED NEED FOR PAIN MEDICATION. AMBULATED IN HALLWAYS AND ROOM. RODDY PO FOOD AND FLUIDS WITHOUT NAUSEA.
[2020-03-07 03:54] LABS: Hematocrit 31.4 % (37.0-53.0); Hemoglobin 10.2 g/dL (13.5-17.5)
[2020-03-07 04:13] LABS: Albumin, Blood 1.8 g/dL (3.4-5.0); Anion Gap 8 mmol/L (6-16); Blood Urea Nitrogen 42 mg/dL (8-24); Bun/Creatinine Ratio 7.7 (12.0-20.0); CO2, Blood 29 mmol/L (21-32); Chloride, Blood 104 mmol/L (98-108); Creatinine, Blood 5.42 mg/dL (0.60-1.20); Glomerular Filtration Rate 11 (60-); Glucose, Blood 88 mg/dL (70-99); Magnesium, Blood 1.6 mg/dL (1.6-2.4); Phosphorus, Blood 2.5 mg/dL (2.5-4.9); Potassium, Blood 3.4 mmol/L (3.5-5.5); Sodium, Blood 141 mmol/L (136-145)
--- NOTE | 2020-03-07 05:33 | NUR ---
SHIFT SUMMARY: PT POD#7 FOR NORMAN PATCH OF PERF ULCER. MIDLINE GIAN INTACT AND COMPRESSED. ACTIVE BT THROUGHOUT AND PT REPORTS PASSING FLATUS. RODDY RENAL DIET AND DENIES N/V. DENIES NEED FOR PAIN MEDICATION OVERNIGHT. PT UNABLE TO VOID THIS SHIFT. BLADDER SCAN SHOWED 316CC AND PT STRAIGHT CATHED AT APPROX 0245. PLAN FOR PT/OT TODAY. AWAITING POSSIBLE DISCHARGE TO SNF.
--- NOTE | 2020-03-07 12:43 | NUR ---
PT BACK FROM DIALYSIS, EATING LUNCH, TOLERATED WELL.
--- NOTE | 2020-03-07 17:29 | NUR ---
PT HAD HD TODAY, AMBULATED DOWN THE HALLS, OOB TO CHAIR, TOLERATED WELL, ABD DSG C/D/I, PT UNABLE TO VOID, BLADDER SCAN SHOWED 246ML, OFFERED TO STRAIGHT CATH BUT PT REFUSED AT THIS TIME, DENIES ANY PAIN OR ANY DISCOMFORT, NO OTHER CHANGES THIS SHIFT, REPORT TO ILSA RN.
[2020-03-08 04:27] LABS: Hematocrit 31.6 % (37.0-53.0)
[2020-03-08 04:46] LABS: Albumin, Blood 1.8 g/dL (3.4-5.0); Anion Gap 9 mmol/L (6-16); Blood Urea Nitrogen 37 mg/dL (8-24); Bun/Creatinine Ratio 7.8 (12.0-20.0); CO2, Blood 28 mmol/L (21-32); Calcium, Blood 7.9 mg/dL (8.5-10.1); Chloride, Blood 101 mmol/L (98-108); Creatinine, Blood 4.76 mg/dL (0.60-1.20); Glomerular Filtration Rate 13 (60-); Glucose, Blood 94 mg/dL (70-99); Magnesium, Blood 1.6 mg/dL (1.6-2.4); Potassium, Blood 3.3 mmol/L (3.5-5.5); Sodium, Blood 138 mmol/L (136-145)
--- NOTE | 2020-03-08 07:23 | NUR ---
SUMMARY PT NOT REQUIRING PAIN MED TONIGHT.DENIES NAUSEA.REPORTS HAVING BMS. VOIDING IN SMALL AMNTS,BUT PT IS DIALYSIS PT AND REPORTS HE FEELS LIKE HE IS EMPTYING BLADDER. BLADDER SCAN THIS AM IS 62 ML APPROX 30 MIN POST VOID.
--- NOTE | 2020-03-08 17:42 | NUR ---
SUMMARY OOB TO CHAIR AND AMBULATING TO THE BATHROOM W/ MINIMAL ASSIST, DENIES ANY PAIN, NO HD TODAY, TOLERATING DIET WELL, VOIDING SMALL AMOUNTS, CONT. BLADDER SCAN PRN FOR RETENTION, NO ACUTE CHANGES THIS SHIFT.
[2020-03-09 04:26] LABS: Hematocrit 29.8 % (37.0-53.0); Hemoglobin 9.5 g/dL (13.5-17.5)
[2020-03-09 04:45] LABS: Albumin, Blood 1.7 g/dL (3.4-5.0); Anion Gap 9 mmol/L (6-16); Blood Urea Nitrogen 48 mg/dL (8-24); Bun/Creatinine Ratio 8.1 (12.0-20.0); CO2, Blood 28 mmol/L (21-32); Calcium, Blood 7.4 mg/dL (8.5-10.1); Chloride, Blood 101 mmol/L (98-108); Creatinine, Blood 5.89 mg/dL (0.60-1.20); Glomerular Filtration Rate 10 (60-); Glucose, Blood 94 mg/dL (70-99); Magnesium, Blood 1.7 mg/dL (1.6-2.4); Phosphorus, Blood 2.6 mg/dL (2.5-4.9); Potassium, Blood 3.5 mmol/L (3.5-5.5); Sodium, Blood 138 mmol/L (136-145)
--- NOTE | 2020-03-09 08:04 | NUR ---
SUMMARY PT IN NO DISTRESS.VOIDING IMPROVED. NOT REQUIRING PAIN MEDS AND TOLERATING PO.
[2020-03-09 14:07] LABS: M-SPIKE, % Not Observed % (Not Observed); PROTEIN,TOTAL,URINE 59.2 mg/dL (Not Estab.)
--- NOTE | 2020-03-09 17:38 | NUR ---
SHIFT SUMMARY A/O X4 VSS, POD 9 EXP LAP MEDIPORE C/D/I, AMB W/ FWW TO BATHROOM, VOIDING WELL, TOLERATING PO, DENIES PAIN, PLANS FOR DC 03/10/2020 TO SNF. WILL REPORT TO ONCOMING RN.
--- NOTE | 2020-03-10 04:17 | NUR ---
SHIFT SUMMARY ASSUMED CARE AT 2200. PT IS A/O X4. USES WALKER AND OCC SBA TO BATHROOM. MEDIPORE DRESSING REPLACED OLD DRESSING CAME OFF DURING THE NIGHT. PT HAS HAD NO C/O PAIN DURING THE NIGHT AND WAS ABLE TO GET SOME SLEEP. PT TOLERATING DIET AND VOIDING. NO ACUTE CHANGES OVERNIGHT. ASSISTED WITH ADLS PRN.
[2020-03-10 07:19] LABS: Albumin, Blood 1.8 g/dL (3.4-5.0); Anion Gap 7 mmol/L (6-16); Blood Urea Nitrogen 41 mg/dL (8-24); Bun/Creatinine Ratio 7.7 (12.0-20.0); CO2, Blood 30 mmol/L (21-32); Calcium, Blood 7.8 mg/dL (8.5-10.1); Chloride, Blood 102 mmol/L (98-108); Creatinine, Blood 5.35 mg/dL (0.60-1.20); Glomerular Filtration Rate 11 (60-); Glucose, Blood 98 mg/dL (70-99); Magnesium, Blood 1.7 mg/dL (1.6-2.4); Phosphorus, Blood 2.1 mg/dL (2.5-4.9); Potassium, Blood 3.2 mmol/L (3.5-5.5); Sodium, Blood 139 mmol/L (136-145)
--- NOTE | 2020-03-10 18:29 | NUR ---
SHIFT SUMMARY BILL DENIED PAIN THIS SHIFT. HE WALKED IN THE HALLWAY A COUPLE OF TIMES WITH PT USING WALKER AND GAIT BELT. POTASSIUM REPLACED. RANDOM BLADDER SCAN SHOWED 260ML, PT STATES HE DOESN'T NEED TO URINATE YET. INDEP TO BR. TOOK MEDS PRESCRIBED. WCTM
--- NOTE | 2020-03-11 04:06 | NUR ---
SHIFT SUMMARY PT IS A/O X4 AND IND. IN ROOM WITH FWW. PT HAS DENIED PAIN AND NAUSEA. REPORTS PASSING GAS AND BM 03/10/20 AM. PT REPORTS VOIDING USUAL. MEDIPORE TO MIDLINE INCISION CDI. NO ACUTE CHANGES OVERNIGHT. BP SLIGHTLY ELEVATED AT TIMES; PT REPORTS THIS IS NORMAL FOR HIM. ASSISTED WITH ADL'S PRN.
[2020-03-11 04:46] LABS: Hematocrit 30.1 % (37.0-53.0); Hemoglobin 9.5 g/dL (13.5-17.5)
[2020-03-11 05:10] LABS: Albumin, Blood 1.8 g/dL (3.4-5.0); Anion Gap 5 mmol/L (6-16); Blood Urea Nitrogen 37 mg/dL (8-24); Bun/Creatinine Ratio 7.7 (12.0-20.0); CO2, Blood 29 mmol/L (21-32); Chloride, Blood 103 mmol/L (98-108); Creatinine, Blood 4.78 mg/dL (0.60-1.20); Glomerular Filtration Rate 13 (60-); Glucose, Blood 90 mg/dL (70-99); Magnesium, Blood 1.8 mg/dL (1.6-2.4); Phosphorus, Blood 3.3 mg/dL (2.5-4.9); Potassium, Blood 3.9 mmol/L (3.5-5.5); Sodium, Blood 137 mmol/L (136-145)
--- NOTE | 2020-03-11 09:34 | NUR ---
904 TO DIALYSIS PER WHEELCHAIR
--- NOTE | 2020-03-11 17:47 | NUR ---
SUMMARY DENIES PAIN OR DISCOMFORT. PT REPORTS NO ILL EFFECTS AFTER DIALYSIS. PT AWAITING [facility] AND THEN PLANS DC TO SNF. PT AMBULATING IN ROOM AND HALLWAYS WITH STANDBY ASSIST
[2020-03-12 04:53] LABS: Hematocrit 29.2 % (37.0-53.0); Hemoglobin 9.2 g/dL (13.5-17.5)
[2020-03-12 05:16] LABS: Albumin, Blood 1.8 g/dL (3.4-5.0); Anion Gap 4 mmol/L (6-16); Blood Urea Nitrogen 37 mg/dL (8-24); Bun/Creatinine Ratio 7.7 (12.0-20.0); CO2, Blood 32 mmol/L (21-32); Chloride, Blood 101 mmol/L (98-108); Creatinine, Blood 4.83 mg/dL (0.60-1.20); Glomerular Filtration Rate 13 (60-); Glucose, Blood 97 mg/dL (70-99); Magnesium, Blood 1.7 mg/dL (1.6-2.4); Phosphorus, Blood 2.7 mg/dL (2.5-4.9); Potassium, Blood 4.1 mmol/L (3.5-5.5); Sodium, Blood 137 mmol/L (136-145)
--- NOTE | 2020-03-12 05:55 | NUR ---
POD 11 FROM EXP LAP W/ NORMAN PATCH, MONITORING FOR URINARY RETENTION. PT URINE OUTPUT OF 400 MLS. DENIES PAIN, AMBULATE W/ WALKER INDEPNDTLY. VERY PLEASANT THIS MORNING. MID ABD INC, WOUND C/D/I. PT WAITING FOR SNF PLACEMENT. TRACE EDEMA ON BLE. DENIES CP, SOB, N/V. DENIES PASSING FLATUS BUT HAD BM YSTRDAY.
--- NOTE | 2020-03-12 07:51 | NUR ---
PT VSS T/O NIGHT, LUNGS WHEEZY, PT DENIES SOB, DECLINES RT TX. SUNG DRESSING CDI, PT DENIES PAIN. PT RODDY PO, NO N/V, REP +BM, IS VOIDING URINE W/O DIFFICULTY. PT INDEP IN ROOM, IS USING CALL LIGHT FOR ASSISTANCE. CONT TO AWAIT DC PLANNING FOR SNF PLACEMENT.
--- NOTE | 2020-03-12 13:42 | NUR ---
1340 THIS NURSE CALLED AND GAVE REPORT TO WILVER PRIOR TO DISCHARGE. REPORT GIVEN TO TONEY. PT HELPED DRESSED BY STAFF.TRANSPORT TO ARRIVE 1430
== END 2020-03-12 14:40 | disposition home or self-care (01) | DRG 330 ==
LOC: ER 22:16 → ICUW 02-29 01:39 → SURS 02-29 01:39 → ICUW 02-29 01:46 → SURS 03-01 03:05
PROVIDERS: Emergency Medicine; Internal Medicine; Internal Medicine Nephrology; Physician Assistant; Surgery; ADMIT Internal Medicine
PROC: 0DU907Z Supplement Duodenum with Autologous Tissue Substitute, Open Approach (ICD-10-PCS; principal; 2020-02-29 11:00)
PROC: 02HV33Z Insertion of Infusion Device into Superior Vena Cava, Percutaneous Approach (ICD-10-PCS; 2020-03-03)
PROC: 0JH63XZ Insertion of Tunneled Vascular Access Device into Chest Subcutaneous Tissue and Fascia, Percutaneous Approach (ICD-10-PCS; 2020-03-03)
PROC: 5A1D70Z Performance of Urinary Filtration, Intermittent, Less than 6 Hours Per Day (ICD-10-PCS; 2020-03-03)
PROC: 30233N1 Transfusion of Nonautologous Red Blood Cells into Peripheral Vein, Percutaneous Approach (ICD-10-PCS; 2020-03-03)
PROC: 5A1D70Z Performance of Urinary Filtration, Intermittent, Less than 6 Hours Per Day (ICD-10-PCS; 2020-03-04)
PROC: 5A1D70Z Performance of Urinary Filtration, Intermittent, Less than 6 Hours Per Day (ICD-10-PCS; 2020-03-05)
PROC: 5A1D70Z Performance of Urinary Filtration, Intermittent, Less than 6 Hours Per Day (ICD-10-PCS; 2020-03-06)
PROC: 5A1D70Z Performance of Urinary Filtration, Intermittent, Less than 6 Hours Per Day (ICD-10-PCS; 2020-03-07)
DX: K26.5 Chronic or unspecified duodenal ulcer with perforation (principal); I13.0 Hypertensive heart and chronic kidney disease with heart failure and stage 1 through stage 4 chronic kidney disease, or unspecified chronic kidney disease; N17.9 Acute kidney failure, unspecified; I48.20 Chronic atrial fibrillation, unspecified; K56.609 Unspecified intestinal obstruction, unspecified as to partial versus complete obstruction; E87.2 Acidosis; I50.32 Chronic diastolic (congestive) heart failure; E11.22 Type 2 diabetes mellitus with diabetic chronic kidney disease; N18.3 Chronic kidney disease, stage 3 (moderate); Z79.4 Long term (current) use of insulin; D63.1 Anemia in chronic kidney disease; Z79.01 Long term (current) use of anticoagulants; B18.2 Chronic viral hepatitis C; R53.81 Other malaise; E78.5 Hyperlipidemia, unspecified; E86.0 Dehydration; G47.33 Obstructive sleep apnea (adult) (pediatric); E87.5 Hyperkalemia
CPT/HCPCS: 36415; 36430; 36558; 51702; 71045; 74176; 74240; 76937; 80048; 80053; 80069; 80074; 81001; 81050; 82248; 82550; 82728; 82784; 82803; 82947; 83036; 83516; 83520; 83540; 83550; 83605; 83690; 83735; 84132; 84156; 84165; 84166; 85014; 85018; 85025; 86038; 86256; 86317; 86334; 86335; 86850; 86900; 86901; 86923; 87040; 93005; 93010; 94640; 94667; 94760; 96365; 96375; 96376; 97110; 97112; 97116; 97163; 97166; 97530; 97535; 99152; 99153; 99285-25; A9270-GY; C1750; C1769; C1894; C9113; J0610; J0881; J1100; J1170; J1644; J1815; J2250; J2370; J2405; J2543; J2704; J3010; J3480; J7030; J7040; J7042; J7060; J7070; J7120; P9016; U0003

== ENCOUNTER 2020-07-29 13:41 | Day surgery (SDC) | payer OTHER, MEDICARE ==
[~2020-07-29] VITALS: Ht 180.3 cm; Wt 100.0 kg
[~2020-07-29 13:41] MED LIST changes: +CALCIUM CIT 311 EACH PO; +CENTRUM SILVER1 EAC2 PO; +CLOP75 PO; +Calcium Acetat667 MG PO; +HYDR1TAB94 PO; +Lopressor 25 mg25 MG PO; +PANT40 PO; +RENAL VITAMIN0.8 MG PO
--- NOTE | 2020-07-29 15:49 | NUR ---
RESCHEDULE PROCDURE. PT HAS BEEN RESCHEDULED FOR PROCDURE. IV DC'D WITH CANULA IN TACT. PT WALKED OUT INDEPENDANTLY WITH STEADY GAIT.
== END 2020-07-29 22:50 | disposition home or self-care (01) ==
LOC: MHTC 13:41
DX: N18.6 End stage renal disease (principal)

== ENCOUNTER 2020-08-05 11:12 | Day surgery (SDC) | payer OTHER, MEDICARE ==
[~2020-08-05] VITALS: Ht 180.3 cm; Wt 92.0 kg
--- NOTE | 2020-08-05 15:35 | NUR ---
PT TO RECOVERY ROOM POST PROCEDURE. PT AWAKE AND CONVERSING APPROPRIATELY, DENIES PAIN POST PROCEDURE. MONITOR SR 60'S, B/P 150/69, AFEBRILE, SPO2 98% RA. R RADIAL SITE NO SWELLING/HEMATOMA, TR BAND IN PLACE 12 CC AIR. R UPPER ARM SITE NO SWELLING/HEMATOMA STERI SRIPS AND TEGADERM DRSG INTACT. PT TAKING SIPS OF COFFEE WITHOUT ISSUE.
--- NOTE | 2020-08-05 18:00 | NUR ---
PT AMB TO BATHRROM WITHOUT ISSUE, GAIT STEADY; SITES UNCHANGED WITH ACTIVITY. PT GOT DRESSED WITH ASSISTANCE, TR BAND REMOVED CLOTH DOT AND WRIST IMMOBILIZER PLACED; IV REMOVED-CANNULA INTACT. PT DECLINED SLING-REPORTS HE HAS MULTIPLE AT HOME.
--- NOTE | 2020-08-05 18:10 | NUR ---
PT AND FRIEND RECEIVED DISCHARGE INSTRUCTIONS, MED LIST AND AFTER CARE INSTRUCTIONS; VERBALIZED GOOD UNDERSTANDING. PT LEFT FACILITY VIA W/C, CONDITION STABLE.
== END 2020-08-05 17:00 | disposition home or self-care (01) ==
LOC: MHTC 11:12
DX: I13.2 Hypertensive heart and chronic kidney disease with heart failure and with stage 5 chronic kidney disease, or end stage renal disease (principal); E11.22 Type 2 diabetes mellitus with diabetic chronic kidney disease; N18.6 End stage renal disease; I50.9 Heart failure, unspecified; D63.1 Anemia in chronic kidney disease; L25.9 Unspecified contact dermatitis, unspecified cause; E78.5 Hyperlipidemia, unspecified; I48.91 Unspecified atrial fibrillation; Z99.2 Dependence on renal dialysis; Z79.82 Long term (current) use of aspirin; Z79.02 Long term (current) use of antithrombotics/antiplatelets; Z79.899 Other long term (current) drug therapy; Z87.891 Personal history of nicotine dependence; Z91.048 Other nonmedicinal substance allergy status
CPT/HCPCS: 36902; 37607; 76937; 99152; 99153; C1725; C1769; C1894; J1644; J2250; J3010; J7030; Q9967